=== PATIENT | male | born 1985 | race African-American/Black ===

== ENCOUNTER 2017-01-08 23:50 | Emergency (ER) | payer MEDICAID ==
[~2017-01-08] VITALS: Ht 172.7 cm; Wt 95.3 kg
[2017-01-09 00:25] VITALS: BP 114/57
[2017-01-09 00:48] LABS: Urine Bilirubin Negative (Negative); Urine Blood Negative /uL (Negative); Urine Color Yellow (Yellow); Urine Glucose Normal (Normal); Urine Ketone Negative (Negative); Urine Nitrite Negative (Negative); Urine RBC 1 /hpf (0 - 3); Urine Urobilinogen Normal (Negative); Urine pH 5.5 (5.0-8.0)
[2017-01-09] MEDS ORDERED: cefTRIAXone SODIUM 250 MG VL IM ONE (03:00)
[2017-01-09] MEDS ORDERED: AZITHROMYCIN 250 MG TAB PO ONE (03:00)
== END 2017-01-09 03:27 | disposition home or self-care (01) ==
LOC: ER 23:52
DX: R36.9 Urethral discharge, unspecified (principal); Z20.2 Contact with and (suspected) exposure to infections with a predominantly sexual mode of transmission; F12.10 Cannabis abuse, uncomplicated
CPT/HCPCS: 81001; 96372; 99283; J0696

== ENCOUNTER 2020-01-02 09:45 | Emergency (ER) | payer MEDICAID ==
[~2020-01-02] VITALS: Ht 175.3 cm; Wt 99.8 kg
[2020-01-02] MEDS ORDERED: IBUPROFEN 800 MG TAB PO ONE (10:30)
[2020-01-02 11:30] VITALS: BP 128/70
== END 2020-01-02 11:33 | disposition home or self-care (01) ==
LOC: ER 09:45
DX: M79.642 Pain in left hand (principal); M25.522 Pain in left elbow
CPT/HCPCS: 73080; 73130

== ENCOUNTER 2021-07-23 10:47 | Emergency (ER) | payer MEDICAID, OTHER ==
[~2021-07-23] VITALS: Ht 175.3 cm; Wt 104.3 kg
[2021-07-23 12:53] VITALS: BP 140/83
== END 2021-07-23 13:47 | disposition home or self-care (01) ==
LOC: ER 10:47
DX: S01.01XD Laceration without foreign body of scalp, subsequent encounter (principal); J45.909 Unspecified asthma, uncomplicated; F12.10 Cannabis abuse, uncomplicated; X58.XXXD Exposure to other specified factors, subsequent encounter

== ENCOUNTER 2021-09-25 18:24 | Emergency (ER) | payer SELFPAY ==
[~2021-09-25] VITALS: Ht 175.3 cm; Wt 110.4 kg
[2021-09-25 18:30] VITALS: BP 145/83
== END 2021-09-26 01:12 | disposition left against medical advice (07) ==
LOC: ER 18:25
DX: H92.02 Otalgia, left ear (principal); Z53.21 Procedure and treatment not carried out due to patient leaving prior to being seen by health care provider